=== PATIENT | female | born 1995 | race Caucasian/White ===

== ENCOUNTER → 2020-05-17 09:45 | Outpatient (BNVA) | payer BC, OTHER, SELFPAY | PROVIDERS: Family Provider Family Medicine; PCP Family Medicine; Visit Provider Family Medicine | DX: Z30.09 Encounter for other general counseling and advice on contraception (principal) | CPT/HCPCS: 81025; 88175 ==

== ENCOUNTER 2020-06-26 11:16 | Emergency (ER) | payer BC, SELFPAY ==
[2020-06-26 11:21] VITALS: BP 146/89; PULSE 86; RESP 18; TEMP 36.6; O2SAT 100; BMI 34.0
--- NOTE | 2020-06-26 11:34 | US_ITS ---
WS: [id number] ULTRASOUND ABDOMEN LIMITED CLINICAL INFORMATION: abd pain COMPARISON: None. FINDINGS: Liver Size: Enlarged Craniocaudal length: 18.6 cm. Echogenicity: Coarse Surface nodularity: None. Mass (size and location): None. Bile ducts Intrahepatic ducts: Normal. Common bile duct diameter: 0.7 cm. Gallbladder Cholelithiasis Gallstones: Present Gallbladder sludge: None. Gallbladder wall thickening: None. Pericholecystic fluid: None. Sonographic Marshall sign: Absent. Pancreas Normal as visualized. Right kidney: Normal. Hydronephrosis: None. Size: 12.9 cm x 5.7 cm x 4.9 cm. Abdominal aorta and IVC Visualized portions are normal. Ascites: None. US/US gall bladder [id number] IMPRESSION: 1. Cholelithiasis. Negative Marshall sign. No gallbladder wall thickening or per icholecystic fluid. 2. Mild hepatomegaly with diffuse fatty infiltration. 3. No hydronephrosis in right kidney.
--- NOTE | 2020-06-26 11:40 | ED_ITS ---
HPI - Abdominal Pain General: Chief Complaint: Abdominal Pain Stated Complaint: ABD Pain/Sent from Urgent Care Time Seen by Provider: 06/26/20 11:26 Source: patient Mode of arrival: ambulatory Limitations: no limitations History of Present Illness: HPI narrative: 24-year-old female who states this morning after having a coughing needing surgery to start having severe right upper quadrant abdominal pain. States pain is sharp in nature and does radiate to her back. She denies any history of any problems with her gallbladder. She has had no abdominal surgeries. She denies any fever. She denies any nausea or vomiting. She states her pain is currently a 7 out of 10. Associated Symptoms: Denies chills, dysuria and fever(s) Review of Systems Const: Denies: fever(s), chills, body aches or change in appetite Eyes: Denies: blurry vision or eye discomfort ENMT: Denies: throat pain or dental pain Card: Denies: chest pain Resp: Denies: dyspnea GI: Reports: abdominal pain : Denies: dysuria Musc: Denies: neck pain or back pain Skin/Breast: Denies: rash Neuro: Denies: headache(s) Psych: Denies: depression Scotty/Lymph: Denies: easy bruising All/Imm: Denies: urticaria PFSH ED PFSH: Medical History Family planning Surgical History No pertinent past surgical history Family History Other CAD (coronary artery disease) Cancer Diabetes Hypertension Stroke Social History Smoking and tobacco status: current every day smoker cigarettes [ Other cigarette details: smokes occasionally ] Alcohol intake: current Alcohol intake frequency: holidays/special occasions only Physical Exam Const: COMMON NORMALS: no acute distress, patient oriented x3 and healthy appearing HENMT: COMMON NORMALS: normocephalic and atraumatic HEAD & SCALP: normocephalic and atraumatic Eye: COMMON NORMALS: Equal, round and reactive pupils present and EOMs intact bilaterally PUPIL: Yes Equal, round and reactive pupils present Neck/C-Spine: COMMON NORMALS: full ROM and supple Chest: COMMONS NORMALS: normal inspection of the chest and normal palpation of entire chest wall Resp: COMMON NORMALS: normal respiratory effort, No retractions, No use of accessory muscles and clear to auscultation bilaterally AUSCULTATION: clear to auscultation bilaterally Cardio: COMMON NORMALS: regular rate, regular rhythm and No murmurs present (Cardio) RATE: regular rate RHYTHM: regular rhythm GI: COMMON NORMALS: Normal to inspection, nondistended, normoactive bowel sounds present, Soft to palpation and no masses PALPATION: Yes Soft to palpation and Yes Tenderness to palpation present (GI) Details: RUQ Extremity: COMMON NORMALS: normal to inspection and full ROM Neuro: COMMON NORMALS: patient oriented x3, moves all extremities and no focal motor deficits Psych: COMMON NORMALS: mental status grossly normal, Normal thought process present and cooperative THOUGHT PROCESS: Normal thought process present Skin: COMMON NORMALS: no rashes or lesions noted and no wounds GENERAL SKIN EXAM: no rashes or lesions noted Course Vital Signs: Vital signs: Vital Signs Temperature 97.9 F 06/26/20 11:21 Pulse Rate 91 06/26/20 12:08 Respiratory Rate 16 06/26/20 12:08 Blood Pressure 133/77 06/26/20 12:08 Pulse Oximetry 100 06/26/20 12:08 MDM - Abdominal Pain MDM Narrative: Medical decision making narrative: Patient presents here with gallstones likely causing her abdominal pain. She has no signs of cholecystitis. Her pain here is improved and blood work here is normal as well. Did instruct her to have a bland diet will prescribe her pain meds and get her follow-up with Dr. Suh. She is to return if worsening. She understands agrees to plan. Lab Data: Labs: Lab Results 06/26/20 06/26/20 06/26/20 Range/Units 11:55 11:55 12:02 WBC 11.2 H (4.0-10.0) 10^3/ uL RBC 4.85 (4.1-5.3) 10^6/u L Hgb 14.3 (11.5-15.3) g/dL Hct 44.1 (37.0-47.0) % MCV 90.9 (81-99) fL MCH 29.5 (28.0-34.0) pg MCHC 32.4 (30.0-36.0) g/dL RDW 12.7 (12.1-15.1) % Plt Count 304 (130-400) 10^3/c mm MPV 11.2 H (7.4-10.4) fL Neut % (Auto) 82.2 % Lymph % (Auto) 11.6 % [place] % (Auto) 4.9 % Eos % (Auto) 0.6 % Baso % (Auto) 0.3 % Neut # (Auto) 9.25 H (1.8-7.7) 10^3/u L Lymph # (Auto) 1.3 (0.8-4.8) 10^3/u L [place] # (Auto) 0.6 (0.2-0.9) 10^3/u L Eos # (Auto) 0.1 (0.0-0.8) 10^3/u L Baso # (Auto) 0.0 (0.0-0.1) 10^3/u L Nucleated RBC % (a uto) 0 % Nucleated RBCs # 0.0 /100WBC Sodium 141 (136-145) mmol/L Potassium 3.9 (3.5-5.1) mmol/L Chloride 103 (98-107) mmol/L Carbon Dioxide 24 (22-29) mmol/L Anion Gap 17.9 (5-19) BUN 7 (6-20) mg/dL Creatinine 0.6 (0.5-0.9) mg/dL GFR Calculation 123.9 (90-130) mL/min Glucose 110 (65-115) mg/dL Calculated Osmolal ity 291 (285-295) mOsm/k g Calcium 9.3 (8.5-10.5) mg/dL Total Bilirubin 0.8 (0.15-1.2) mg/dL AST 181 H (0-32) U/L ALT 120 H (0-33) U/L Alkaline Phosphata se 94 (35-105) IU/L Total Protein 7.4 (6.6-8.7) g/dL Albumin 4.5 (3.5-5.2) g/dL Globulin 2.9 (1.3-4.6) g/dL Lipase 35 (13-60) U/L HCG, Qual Negative (Negative) Imaging Data ^: US: Attestation: I personally reviewed and interpreted this imaging study as follows: My impression: gallstones with no signs of cholecystitis Discharge Plan Discharge Patient Disposition: Home Clinical Impression: Gallstone Qualifiers: Cholecystitis presence: without cholecystitis Biliary obstruction: without biliary obstruction Qualified Code(s): K80.20 - Calculus of gallbladder without cholecystitis without obstruction Condition: Stable Prescriptions: [place] 5-325 mg tablet 1 tab PO Q6H PRN (Reason: pain) Qty: 14 RF: 0 Zofran 4 mg tablet 4 mg PO QID PRN (Reason: nausea and vomiting) Qty: 14 RF: 0 No Action medroxyprogesterone [Depo-Provera] 150 mg/mL suspension 150 mg IM .every 3 months Qty: 1 RF: 3 Discharge Orders: Discharge ED (Routine); Ordered 06/26/20 Ordered By: Chema Gaston Referrals: Donavon Suh MD [Physician] - 1-3 days Nicolette Cain DO [Primary Care Provider] - Discharge Diet: Advance as tolerated Discharge Activity: Resume usual activity Patient Instructions: Biliary Colic (ED) Coding Level of Care Code ED Tag Meter Operator for Chg Fwd Exam Comprehensive
[2020-06-26] MEDS: ondansetron 2 mg/ML SDV 2 mL 4 MG IVP (12:03)
[2020-06-26 12:05] LABS: Basophils % 0.3 %; Eosinophils # 0.1 10^3/uL (0.0-0.8); Eosinophils % 0.6 %; Hematocrit 44.1 % (37.0-47.0); Hemoglobin 14.3 g/dL (11.5-15.3); Lymphocytes # 1.3 10^3/uL (0.8-4.8); Lymphocytes % 11.6 %; Mean Corpuscular HGB Conc 32.4 g/dL (30.0-36.0); Mean Corpuscular Hemoglobin 29.5 pg (28.0-34.0); Mean Corpuscular Volume 90.9 fL (81-99); Mean Platelet Volume 11.2 fL (7.4-10.4); Monocytes # 0.6 10^3/uL (0.2-0.9); Monocytes % 4.9 %; Neutrophils # 9.25 10^3/uL (1.8-7.7); Neutrophils % 82.2 %; Nucleated Red Blood Cells % 0 %; Platelet Count 304 10^3/cmm (130-400); Red Blood Count 4.85 10^6/uL (4.1-5.3); Red Cell Distribution Width 12.7 % (12.1-15.1); White Blood Count 11.2 10^3/uL (4.0-10.0)
[2020-06-26 12:06] VITALS: RESP 16
[2020-06-26] MEDS: morphine 4 mg/mL SDV 1 mL IVP (12:06)
[2020-06-26 12:08] VITALS: BP 133/77; PULSE 91; RESP 16; O2SAT 100
[2020-06-26 12:22] LABS: HCG Qualitative Urine. Negative (Negative)
[2020-06-26 12:33] LABS: Alanine Aminotransferase 120 U/L (0-33); Albumin Level 4.5 g/dL (3.5-5.2); Alkaline Phosphatase 94 IU/L (35-105); Anion Gap 17.9 (5-19); Aspartate Amino Transferase 181 U/L (0-32); Blood Urea Nitrogen 7 mg/dL (6-20); Calcium 9.3 mg/dL (8.5-10.5); Carbon Dioxide 24 mmol/L (22-29); Chloride 103 mmol/L (98-107); Globulin 2.9 g/dL (1.3-4.6); Glomerular Filtration Rate 123.9 mL/min (90-130); Glucose 110 mg/dL (65-115); Lipase 35 U/L (13-60); Osmolality Calculated 291 mOsm/kg (285-295); Potassium 3.9 mmol/L (3.5-5.1); Sodium 141 mmol/L (136-145); Total Bilirubin 0.8 mg/dL (0.15-1.2); Total Protein 7.4 g/dL (6.6-8.7)
[2020-06-26 12:57] LABS: Add Urine Microscopic? YES; Bilirubin Urine 1+ (Negative); Blood Urine Trace (Negative); Glucose Urine UA Norm (Normal); Ketones Urine Negative (Negative); Leukocyte Esterase Urine 2+ (Negative); Nitrate Urine Negative (Negative); Protein Urine Neg (Negative); Specific Gravity, Urine 1.015 (1.005-1.030); Urine Appearance Hazy (CLEAR); Urine Color Yellow (Yellow); Urobilinogen Urine 4 mg/dL (Negative); pH Urine 7 (5-7)
[2020-06-26 12:59] LABS: Bacteria Urine 2+ /hpf; RBC Urine 0-4 /hpf (0-2); WBC Urine 40-55 /hpf (0-5)
[2020-06-26 13:00] LABS: Add Urine Culture? No; Squamous Epithelial Cell Urine 15-25 /hpf (0-5)
--- NOTE | 2020-06-27 12:47 | DCPLANNER ---
barber or beauty shop manager had message to schedule a follow up appointment with patient with Dr. Suh. barber or beauty shop manager faxed patients information to the office of Dr. Suh, bilingual case manager will call for appointment information. Clinic will call patient with appointment information.
--- NOTE | 2020-07-04 14:08 | DCPLANNER ---
Addendum entered by Roxana Kothari 07/24/20 11:54: Patient did attend appointment with Dr. Suh on 07.10.20. Original Note: Patient has a follow up appointment scheduled for Friday, July 10, 2020 at 1:[address] Suh, patient is aware of scheduled appointment.
== END 2020-06-26 13:25 | disposition home or self-care (01) ==
PROVIDERS: Emergency Provider Emergency Medicine; PCP Family Medicine
DX: K80.20 Calculus of gallbladder without cholecystitis without obstruction (principal); F17.210 Nicotine dependence, cigarettes, uncomplicated
CPT/HCPCS: 12345; 76705; 80053; 81001; 81025; 83690; 85025; 96374; 96375; 99283; J2270; J2405

== ENCOUNTER → 2021-08-22 09:45 | Outpatient (BNVA) | payer BC, SELFPAY | PROVIDERS: PCP Family Medicine; Referring Provider Family Medicine Adult Medicine; Visit Provider Obstetrics & Gynecology | DX: Z12.4 Encounter for screening for malignant neoplasm of cervix (principal); N89.8 Other specified noninflammatory disorders of vagina | CPT/HCPCS: 87070; 87205; 87481; 87512; 87798; 87799; 88175 ==